=== PATIENT | male | born 1995 | race Caucasian/White ===

== ENCOUNTER 2017-10-14 22:04 | Inpatient (IN) | payer MEDICAID, SELFPAY, OTHER ==
[2017-10-14 22:53] LABS: HEMATOCRIT 40.6 % (42.0-52.0); HEMOGLOBIN 14.3 g/dl (14.0-18.0); MEAN CORPUSCULAR HEMOGLOBIN 31.4 pg (27.0-33.0); MEAN CORPUSCULAR HGB CONC 35.2 g/dl (32.0-36.5); PLATELET COUNT, AUTOMATED 229 10^3/uL (150-450); RED BLOOD COUNT 4.56 10^6/uL (4.30-6.10); RED CELL DISTRIBUTION WIDTH 12.2 % (11.5-14.5)
[2017-10-14 23:21] LABS: AMPHETAMINES LEVEL URINE NEGATIVE (NEGATIVE); BARBITURATES URINE NEGATIVE (NEGATIVE); BENZODIAZEPINES URINE NEGATIVE (NEGATIVE); CANNABINOIDS URINE POSITIVE (NEGATIVE); COCAINE METABOLITE URINE NEGATIVE (NEGATIVE); METHADONE URINE NEGATIVE (NEGATIVE); OPIATES URINE NEGATIVE (NEGATIVE); PHENCYCLIDINE URINE NEGATIVE (NEGATIVE)
[2017-10-14 23:25] LABS: ALBUMIN 4.5 GM/DL (3.2-5.2); ALBUMIN/GLOBULIN RATIO 1.36 (1.00-1.93); ALKALINE PHOSPHATASE 71 U/L (45-117); ALT/SGPT 24 U/L (12-78); ANION GAP 10 MEQ/L (8-16); AST/SGOT 17 U/L (7-37); BILIRUBIN,DIRECT 0.2 MG/DL (0.0-0.2); BILIRUBIN,TOTAL 0.5 MG/DL (0.2-1.0); BLOOD UREA NITROGEN 18 MG/DL (7-18); CALCIUM LEVEL 9.1 MG/DL (8.5-10.1); CARBON DIOXIDE LEVEL 25 MEQ/L (21-32); CHLORIDE LEVEL 108 MEQ/L (98-107); CREATININE FOR GFR 0.78 MG/DL (0.70-1.30); ETHYL ALCOHOL (ETHANOL) 0.004 % (0.000-0.010); GLOMERULAR FILTRATION RATE > 60.0 (>60); GLUCOSE, FASTING 85 MG/DL (70-100); POTASSIUM SERUM 3.6 MEQ/L (3.5-5.1); SALICYLATE LEVEL < 1.7 MG/DL (5.0-30.0); SODIUM LEVEL 143 MEQ/L (136-145); TOTAL PROTEIN 7.8 GM/DL (6.4-8.2)
[2017-10-14 23:30] LABS: ACETAMINOPHEN LEVEL < 2.0 UG/ML (10.0-30.0)
[2017-10-14] MEDS ORDERED: MAALOX 30 ML SUSP *UDC PO (23:45)
[2017-10-14] MEDS ORDERED: ACETAMINOPHEN TAB 650MG DOSE (2X325MG) PO (23:45)
[2017-10-14] MEDS ORDERED: MOM 30ML SUSPENSION UDC PO (23:45)
[2017-10-15] MEDS: clonazePAM 0.5 MG TAB PO (15:13)
[2017-10-15] MEDS: traZODone 50 MG TAB PO (22:42)
[2017-10-16] MEDS: busPIRone 10 MG TAB PO (12:15)
== END 2017-10-16 13:49 | disposition home or self-care (01) | DRG 882 ==
LOC: M PSY 10-15 → M ED 22:04 → M ED INP 23:39
DX: F43.20 Adjustment disorder, unspecified (principal); Z88.0 Allergy status to penicillin; F12.90 Cannabis use, unspecified, uncomplicated

== ENCOUNTER 2019-03-07 10:47 | Emergency (ER) | payer MEDICAID, OTHER, SELFPAY ==
[~2019-03-07] VITALS: Ht 167.6 cm; Wt 65.9 kg
[2019-03-07 10:47] VITALS: BP 129/85
[~2019-03-07 10:47] MED LIST: TRAZ1TAB10 PO
[2019-03-07] MEDS ORDERED: ACETAMINOPHEN 500 MG TAB PO ONE (11:15)
[2019-03-07] MEDS ORDERED: NS 1,000 ML IV ONE (11:15)
[2019-03-07 11:47] LABS: BASO % 0.5 % (0.0-1.0); EOS # 0.1 10^3/uL (0.0-0.50); EOS % 1.1 % (0.0-3.0); HEMATOCRIT 45.1 % (42.0-52.0); HEMOGLOBIN 15.5 g/dl (13.5-17.5); LYMPH # 2.3 10^3/uL (1.5-6.5); LYMPH % 37.8 % (24.0-44.0); MEAN CORPUSCULAR HEMOGLOBIN 32.2 pg (27.0-33.0); MEAN CORPUSCULAR HGB CONC 34.4 g/dl (32.0-36.5); MEAN CORPUSCULAR VOLUME 93.6 fl (80.0-96.0); MONO # 0.6 10^3/uL (0.0-0.8); MONO % 10.1 % (0.0-5.0); NEUTROPHILS # 3.1 10^3/uL (1.8-7.7); NEUTROPHILS % 50.3 % (36.0-66.0); PLATELET COUNT, AUTOMATED 235 10^3/uL (150-450); RED BLOOD COUNT 4.82 10^6/uL (4.30-6.10); WHITE BLOOD COUNT 6.1 10^3/uL (4.0-10.0)
[2019-03-07 12:12] LABS: BLOOD UREA NITROGEN 20 MG/DL (7-18); CALCIUM LEVEL 9.7 MG/DL (8.5-10.1); CARBON DIOXIDE LEVEL 29 MEQ/L (21-32); CHLORIDE LEVEL 104 MEQ/L (98-107); CREATININE FOR GFR 1.05 MG/DL (0.70-1.30); GLOMERULAR FILTRATION RATE > 60.0 (>60); GLUCOSE, FASTING 88 MG/DL (70-100); POTASSIUM SERUM 4.5 MEQ/L (3.5-5.1); SODIUM LEVEL 138 MEQ/L (136-145)
== END 2019-03-07 14:18 | disposition home or self-care (01) ==
LOC: M ED 10:47
DX: G43.909 Migraine, unspecified, not intractable, without status migrainosus (principal); E86.0 Dehydration; Z72.0 Tobacco use; F12.10 Cannabis abuse, uncomplicated; Z88.0 Allergy status to penicillin

== ENCOUNTER 2021-01-17 16:41 | Emergency (ER) | payer MEDICAID, OTHER, SELFPAY ==
[~2021-01-17] VITALS: Ht 170.2 cm; Wt 79.3 kg
[2021-01-17 16:52] VITALS: BP 141/92
== END 2021-01-17 19:19 | disposition left against medical advice (07) ==
LOC: M ED 16:41
DX: Z53.21 Procedure and treatment not carried out due to patient leaving prior to being seen by health care provider (principal)

== ENCOUNTER → 2021-05-03 | Outpatient (CLI) | payer MEDICAID | LOC: M OUTALCOH 07:31 | PROVIDERS: ATTEND Psychiatry & Neurology Psychiatry | DX: Z13.39 Encounter for screening examination for other mental health and behavioral disorders (principal) ==

== ENCOUNTER → 2021-07-19 | Outpatient (CLI) | payer MEDICAID | LOC: M OUTALCOH 07:46 | PROVIDERS: ATTEND Psychiatry & Neurology Psychiatry | DX: Z13.39 Encounter for screening examination for other mental health and behavioral disorders (principal) ==

== ENCOUNTER 2021-08-07 15:00 | Outpatient (RCR) | payer MEDICAID | END 2021-08-27 | LOC: M OUTALCOH 15:00 | PROVIDERS: ATTEND Psychiatry & Neurology Psychiatry | DX: F10.10 Alcohol abuse, uncomplicated (principal); F12.20 Cannabis dependence, uncomplicated; Z72.0 Tobacco use ==

== ENCOUNTER 2021-09-20 09:55 | Outpatient (RCR) | payer MEDICAID | END 2021-09-24 | LOC: M OUTALCOH 09:55 | PROVIDERS: ATTEND Psychiatry & Neurology Psychiatry | DX: F10.10 Alcohol abuse, uncomplicated (principal); F12.20 Cannabis dependence, uncomplicated; Z72.0 Tobacco use ==

== ENCOUNTER 2021-10-23 16:00 | Outpatient (RCR) | payer MEDICAID | END 2021-10-25 | LOC: M OUTALCOH 16:00 | PROVIDERS: ATTEND Psychiatry & Neurology Psychiatry | DX: F10.10 Alcohol abuse, uncomplicated (principal); F12.20 Cannabis dependence, uncomplicated; Z72.0 Tobacco use ==

== ENCOUNTER 2021-11-13 09:00 | Outpatient (RCR) | payer MEDICAID | END 2021-11-24 | LOC: M OUTALCOH 09:00 | PROVIDERS: ATTEND Psychiatry & Neurology Psychiatry | DX: F10.10 Alcohol abuse, uncomplicated (principal); F12.20 Cannabis dependence, uncomplicated; Z72.0 Tobacco use ==